=== PATIENT | male | born 1935 | race Caucasian/White ===

== ENCOUNTER 2020-02-27 18:03 | Inpatient (IN) ==
[2020-02-27] MEDS ORDERED: methylPREDNISolone 125 MG/2 ML VIAL IVP ONE (18:11)
[2020-02-27 18:31] LABS: Basophils # 0.1 K/mcL (0.0-0.2); Basophils % 0.7 %; Eosinophils # 0.6 K/mcL (0.0-0.6); Eosinophils % 7.3 %; Hematocrit 36.8 % (37.5-50.1); Hemoglobin 12.1 g/dL (12.9-16.9); Immature Granulocytes % 0.2 % (0-4); Lymphocytes # 1.2 K/mcL (0.6-4.6); Lymphocytes % 14.3 %; Mean Corpuscular HGB Conc 32.9 g/dL (31.6-35.5); Mean Corpuscular Hemoglobin 27.5 pg (28.0-33.3); Mean Corpuscular Volume 83.6 fL (83.0-100.0); Mean Platelet Volume 10.9 fL (9.4-12.4); Monocytes # 0.8 K/mcL (0.0-1.3); Monocytes % 10.1 %; Neutrophils # 5.6 K/mcL (1.6-8.9); Platelet Count 218 K/mcL (140-400); Red Cell Distribution Width 13.8 % (11.5-14.5); Segmented Neutrophils % 67.4 %; White Blood Count 8.2 K/mcL (4.3-11.1)
[2020-02-27 18:55] LABS: Alanine Aminotransferase 22 Units/L (7-52); Albumin 4.4 g/dL (3.5-5.7); Albumin/Globulin Ratio 1.6 (1.1-2.2); Alkaline Phosphatase 67 Units/L (34-104); Aspartate Amino Transferase 38 Units/L (13-39); BUN/Creatinine Ratio 32 (6-26); Bilirubin,Total 0.6 mg/dL (0.3-1.0); Blood Urea Nitrogen 12 mg/dL (8-23); Calcium 8.8 mg/dL (8.6-10.3); Carbon Dioxide 29 mEq/L (23-29); Chloride 78 mEq/L (98-107); Globulin 2.7 g/dL (2.4-3.5); Glucose 105 mg/dL (70-105); Osmolality,Calculated 240 (280-300); Potassium 4.4 mEq/L (3.5-5.1); Sodium 115 mEq/L (136-145); Total Protein 7.1 g/dL (6.4-8.9); Troponin I < 0.03 ng/mL (< 0.04); eGFR For African Americans > 60 (> 60); eGFR For Non-African Americans > 60 (> 60)
[2020-02-27] MEDS ORDERED: 0.9 % Sodium Chloride 500 ML IVC ONE (18:55)
[2020-02-27] MEDS ORDERED: Ipratropium/Albuterol Neb 3 ML IH ONE (19:43)
[2020-02-27] MEDS ORDERED: Ondansetron ODT 4 MG TAB.RAPDIS SL PRN (21:10)
[2020-02-27] MEDS ORDERED: Naloxone 0.4 MG/ML INJ IVP PRN (21:10)
[2020-02-27 22:39] LABS: Potassium,Urine 49.2 mEq/L
[2020-02-27 22:40] LABS: Bilirubin,Urine Negative (Negative); Blood,Urine Trace (Negative); Clarity,Urine Clear (Clear); Color,Urine Yellow (Yellow); Glucose,Urine (UA) Normal (Normal); Ketones,Urine 20 mg/dL (Negative); Leukocyte Esterase,Urine Negative (Negative); Mucus,Urine Few per lpf (None-Few); Nitrite,Urine Negative (Negative); Protein,Urine 50 mg/dL (Neg-Trace); Specific Gravity,Urine 1.019 (1.010-1.025); WBC,Urine 0-3 per hpf (0-3)
[2020-02-27 22:58] LABS: Magnesium 1.7 mg/dL (1.6-2.6); Phosphorous 2.7 mg/dL (2.7-4.5)
[2020-02-27] MEDS ORDERED: Isovue-370 500 ML BOTTLE IVP ONE (23:01)
[2020-02-27] MEDS ORDERED: D5% in Water 1,000 ML IVC PRN (23:03)
[2020-02-27] MEDS ORDERED: Dextrose Gel 15 GM/37.5 ML TUBE PO PRN ×2 (23:03)
[2020-02-27] MEDS ORDERED: *HR* Dextrose 50 % in Water (Vial) 50 ML VIAL IVP PRN (23:03)
[2020-02-27 23:05] LABS: BUN/Creatinine Ratio 32 (6-26); Blood Urea Nitrogen 11 mg/dL (8-23); Calcium 8.5 mg/dL (8.6-10.3); Carbon Dioxide 26 mEq/L (23-29); Chloride 79 mEq/L (98-107); Glucose 114 mg/dL (70-105); Osmolality,Calculated 242 (280-300); Potassium 4.2 mEq/L (3.5-5.1); Sodium 116 mEq/L (136-145); eGFR For African Americans > 60 (> 60); eGFR For Non-African Americans > 60 (> 60)
[2020-02-27] MEDS ORDERED: 0.9 % Sodium Chloride 1,000 ML IVC SCH (23:30)
[2020-02-27] MEDS: Budesonide/Formoterol 160/4.5 1 PUFF INH IH SCH (23:35)
[2020-02-27] MEDS: Azithromycin 250 MG TABLET PO SCH (23:56)
[2020-02-27] MEDS: Cholecalciferol (D-3) 1,000 UNIT (25MCG) TABLET PO SCH (23:56)
[2020-02-28] MEDS ORDERED: Levalbuterol Neb 1.25 MG/3 ML ONE (00:07)
[2020-02-28] MEDS ORDERED: Levalbuterol Neb 1.25 MG/3 ML IH STA (00:09)
[2020-02-28] MEDS ORDERED: *HR* Metoprolol 5 MG/5 ML VIAL IVP ONE (00:10)
[2020-02-28 00:38] LABS: VBG HCO3 30 mEq/L (21-27); VBG Ionized Calcium 1.08 mmol/L (1.15-1.35); VBG PCO2 70 mmHg (41-51); VBG PH 7.24 pH Units (7.32-7.42); VBG PO2 64 mmHg (25-50)
[2020-02-28 00:52] LABS: BUN/Creatinine Ratio 28 (6-26); Blood Urea Nitrogen 12 mg/dL (8-23); Calcium 8.7 mg/dL (8.6-10.3); Carbon Dioxide 26 mEq/L (23-29); Chloride 79 mEq/L (98-107); Glucose 121 mg/dL (70-105); Osmolality,Calculated 245 (280-300); Potassium 4.2 mEq/L (3.5-5.1); Sodium 117 mEq/L (136-145); eGFR For African Americans > 60 (> 60); eGFR For Non-African Americans > 60 (> 60)
[2020-02-28 01:05] LABS: Thyroid Stimulating Hormone 3.069 mcIU/mL (0.340-5.600)
[2020-02-28] MEDS: MethylPREDNISolone 40 MG/ML VIAL IVP SCH ×3 (02:15→17:30)
[2020-02-28] MEDS: Calcium Gluconate 1gm/50mL 1 GM/50 ML BAG IVPB SCH ×2 (02:16→03:04)
[2020-02-28] MEDS: Cholecalciferol (D-3) 1,000 UNIT (25MCG) TABLET PO SCH (03:25)
[2020-02-28] MEDS: Azithromycin 250 MG TABLET PO SCH (03:28)
[2020-02-28 03:36] LABS: VBG HCO3 27 mEq/L (21-27); VBG PCO2 50 mmHg (41-51); VBG PH 7.34 pH Units (7.32-7.42); VBG PO2 185 mmHg (25-50)
[2020-02-28 03:37] LABS: Troponin I < 0.03 ng/mL (< 0.04)
[2020-02-28] MEDS: Ipratropium/Albuterol Neb 3 ML IH PRN ×2 (04:14→10:52)
[2020-02-28 04:42] LABS: ABG Base Excess 2 mEq/L (-2 to 3); ABG HCO3 29 mEq/L (21-27); ABG Oxygen Saturation 100 % (95-98); ABG PCO2 52 mmHg (35-45); ABG PH 7.35 pH Units (7.32-7.45); ABG PO2 184 mmHg (85-104); ABG TCO2 31 mEq/L (20-26)
[2020-02-28] MEDS: *HR* Heparin 5,000 UNIT/ML VIAL SQ SCH ×2 (05:24→17:21)
[2020-02-28 05:58] LABS: BUN/Creatinine Ratio 33 (6-26); Blood Urea Nitrogen 13 mg/dL (8-23); Calcium 8.7 mg/dL (8.6-10.3); Carbon Dioxide 24 mEq/L (23-29); Chloride 80 mEq/L (98-107); Glucose 128 mg/dL (70-105); Osmolality,Calculated 244 (280-300); Potassium 4.3 mEq/L (3.5-5.1); Sodium 116 mEq/L (136-145); eGFR For African Americans > 60 (> 60); eGFR For Non-African Americans > 60 (> 60)
[2020-02-28 07:26] LABS: BUN/Creatinine Ratio 30 (6-26); Blood Urea Nitrogen 13 mg/dL (8-23); Calcium 8.7 mg/dL (8.6-10.3); Carbon Dioxide 28 mEq/L (23-29); Chloride 80 mEq/L (98-107); Chol/HDL Ratio 2.3 (0-4.9); Cholesterol 140 mg/dL (< 200); Glucose 128 mg/dL (70-105); HDL Cholesterol 60 mg/dL (40-59); LDL Cholesterol,Calculated 73 mg/dL (< 100); Osmolality,Calculated 246 (280-300); Potassium 4.4 mEq/L (3.5-5.1); Sodium 117 mEq/L (136-145); Triglycerides 34 mg/dL (< 150); eGFR For African Americans > 60 (> 60); eGFR For Non-African Americans > 60 (> 60)
[2020-02-28 08:16] LABS: Estimated Average Glucose 140 mg/dl; Hemoglobin A1C 6.5 %
[2020-02-28] MEDS: Metoprolol XL (24 HR) Succ 25 MG TAB.ER.24H PO SCH (09:37)
[2020-02-28] MEDS: amLODIPine 5 MG TABLET PO SCH (09:37)
[2020-02-28] MEDS: Insulin LISPRO 300 UNITS/3 ML VIAL SUBQ SCH ×3 (09:47→17:22)
[2020-02-28 10:09] LABS: Magnesium 2.1 mg/dL (1.6-2.6); Phosphorous 3.7 mg/dL (2.7-4.5)
[2020-02-28 10:17] LABS: BUN/Creatinine Ratio 30 (6-26); Blood Urea Nitrogen 14 mg/dL (8-23); Calcium 8.9 mg/dL (8.6-10.3); Carbon Dioxide 29 mEq/L (23-29); Chloride 79 mEq/L (98-107); Glucose 126 mg/dL (70-105); Osmolality,Calculated 248 (280-300); Potassium 4.4 mEq/L (3.5-5.1); Sodium 118 mEq/L (136-145); eGFR For African Americans > 60 (> 60); eGFR For Non-African Americans > 60 (> 60)
[2020-02-28] MEDS: Budesonide/Formoterol 160/4.5 1 PUFF INH IH SCH ×2 (10:52→21:01)
[2020-02-28] MEDS: Ipratropium/Albuterol Neb 3 ML IH SCH ×3 (11:16→21:01)
[2020-02-28 12:16] LABS: Basophils % 0.2 %; Hematocrit 35.3 % (37.5-50.1); Immature Granulocytes % 0.4 % (0-4)
[2020-02-28 12:17] LABS: Eosinophils % 0.6 %; Hemoglobin 11.6 g/dL (12.9-16.9); Immature Platelets 14.5 % (1.1-6.1); Lymphocytes # 0.5 K/mcL (0.6-4.6); Lymphocytes % 9.3 %; Mean Corpuscular HGB Conc 32.9 g/dL (31.6-35.5); Mean Corpuscular Hemoglobin 27.5 pg (28.0-33.3); Mean Corpuscular Volume 83.6 fL (83.0-100.0); Mean Platelet Volume 10.2 fL (9.4-12.4); Monocytes # 0.1 K/mcL (0.0-1.3); Monocytes % 1.4 %; Platelet Count 128 K/mcL (140-400); Red Blood Count 4.22 M/mcL (4.19-5.50); Red Cell Distribution Width 13.9 % (11.5-14.5); Segmented Neutrophils % 88.1 %; White Blood Count 4.9 K/mcL (4.3-11.1)
[2020-02-28 12:19] LABS: Neutrophils # 4.3 K/mcL (1.6-8.9)
[2020-02-28 14:01] LABS: BUN/Creatinine Ratio 30 (6-26); Blood Urea Nitrogen 14 mg/dL (8-23); Calcium 8.9 mg/dL (8.6-10.3); Carbon Dioxide 27 mEq/L (23-29); Chloride 79 mEq/L (98-107); Glucose 129 mg/dL (70-105); Osmolality,Calculated 246 (280-300); Potassium 4.3 mEq/L (3.5-5.1); Sodium 117 mEq/L (136-145); eGFR For African Americans > 60 (> 60); eGFR For Non-African Americans > 60 (> 60)
[2020-02-28 14:19] LABS: BUN/Creatinine Ratio 31 (6-26); Blood Urea Nitrogen 14 mg/dL (8-23); Calcium 8.7 mg/dL (8.6-10.3); Carbon Dioxide 29 mEq/L (23-29); Chloride 80 mEq/L (98-107); Glucose 129 mg/dL (70-105); Osmolality,Calculated 248 (280-300); Potassium 4.3 mEq/L (3.5-5.1); Sodium 118 mEq/L (136-145); eGFR For African Americans > 60 (> 60); eGFR For Non-African Americans > 60 (> 60)
[2020-02-28 16:23] LABS: BUN/Creatinine Ratio 33 (6-26); Blood Urea Nitrogen 15 mg/dL (8-23); Calcium 8.6 mg/dL (8.6-10.3); Carbon Dioxide 29 mEq/L (23-29); Chloride 80 mEq/L (98-107); Glucose 211 mg/dL (70-105); Osmolality,Calculated 249 (280-300); Potassium 4.1 mEq/L (3.5-5.1); Sodium 116 mEq/L (136-145); eGFR For African Americans > 60 (> 60); eGFR For Non-African Americans > 60 (> 60)
[2020-02-28 20:50] LABS: BUN/Creatinine Ratio 31 (6-26); Blood Urea Nitrogen 18 mg/dL (8-23); Calcium 8.5 mg/dL (8.6-10.3); Carbon Dioxide 30 mEq/L (23-29); Chloride 83 mEq/L (98-107); Glucose 179 mg/dL (70-105); Osmolality,Calculated 252 (280-300); Potassium 4.4 mEq/L (3.5-5.1); Sodium 118 mEq/L (136-145); eGFR For African Americans > 60 (> 60); eGFR For Non-African Americans > 60 (> 60)
[2020-02-29 00:40] LABS: Basophils % 0.1 %; Eosinophils # 0.1 K/mcL (0.0-0.6); Eosinophils % 0.8 %; Hematocrit 29.6 % (37.5-50.1); Hemoglobin 9.7 g/dL (12.9-16.9); Immature Granulocytes % 0.6 % (0-4); Lymphocytes # 0.6 K/mcL (0.6-4.6); Lymphocytes % 7.1 %; Mean Corpuscular HGB Conc 32.8 g/dL (31.6-35.5); Mean Corpuscular Hemoglobin 27.4 pg (28.0-33.3); Mean Corpuscular Volume 83.6 fL (83.0-100.0); Mean Platelet Volume 10.5 fL (9.4-12.4); Monocytes # 0.9 K/mcL (0.0-1.3); Monocytes % 10.6 %; Neutrophils # 7.1 K/mcL (1.6-8.9); Platelet Count 251 K/mcL (140-400); Red Blood Count 3.54 M/mcL (4.19-5.50); Red Cell Distribution Width 13.9 % (11.5-14.5); Segmented Neutrophils % 80.8 %; White Blood Count 8.8 K/mcL (4.3-11.1)
[2020-02-29 01:10] LABS: % Iron Saturation 10 % (20-55); Albumin 3.6 g/dL (3.5-5.7); BUN/Creatinine Ratio 38 (6-26); Blood Urea Nitrogen 22 mg/dL (8-23); Calcium 8.5 mg/dL (8.6-10.3); Carbon Dioxide 30 mEq/L (23-29); Chloride 83 mEq/L (98-107); Glucose 117 mg/dL (70-105); Iron 31 mcg/dL (65-175); Osmolality,Calculated 250 (280-300); Phosphorous 2.9 mg/dL (2.7-4.5); Potassium 4.5 mEq/L (3.5-5.1); Sodium 118 mEq/L (136-145); Transferrin 225 mg/dL (203-362); eGFR For African Americans > 60 (> 60); eGFR For Non-African Americans > 60 (> 60)
[2020-02-29 01:24] LABS: Ferritin 52 ng/mL (20-250)
[2020-02-29 01:31] LABS: Folate 12.9 ng/mL (3.0-16.0)
[2020-02-29] MEDS: MethylPREDNISolone 40 MG/ML VIAL IVP SCH ×3 (02:41→17:35)
[2020-02-29] MEDS: Ipratropium/Albuterol Neb 3 ML IH SCH ×4 (04:43→21:40)
[2020-02-29] MEDS: *HR* Heparin 5,000 UNIT/ML VIAL SQ SCH ×2 (06:21→17:35)
[2020-02-29 07:48] LABS: BUN/Creatinine Ratio 41 (6-26); Blood Urea Nitrogen 21 mg/dL (8-23); Calcium 8.6 mg/dL (8.6-10.3); Carbon Dioxide 32 mEq/L (23-29); Chloride 83 mEq/L (98-107); Glucose 135 mg/dL (70-105); Osmolality,Calculated 257 (280-300); Potassium 4.4 mEq/L (3.5-5.1); Sodium 121 mEq/L (136-145); eGFR For African Americans > 60 (> 60); eGFR For Non-African Americans > 60 (> 60)
[2020-02-29] MEDS ORDERED: Iron Sucrose Complex 400 MG in 0.9 % Sodium Chloride 250 ML IVPB ONE (08:00)
[2020-02-29] MEDS: Budesonide/Formoterol 160/4.5 1 PUFF INH IH SCH ×2 (09:38→21:40)
[2020-02-29 09:59] LABS: ABG Base Excess 6 mEq/L (-2 to 3); ABG HCO3 33 mEq/L (21-27); ABG Oxygen Saturation 94 % (95-98); ABG PCO2 54 mmHg (35-45); ABG PH 7.39 pH Units (7.32-7.45); ABG PO2 73 mmHg (85-104); ABG TCO2 34 mEq/L (20-26); Blood Gas Modality BiLevel
[2020-02-29] MEDS: Metoprolol XL (24 HR) Succ 25 MG TAB.ER.24H PO SCH (10:33)
[2020-02-29] MEDS: amLODIPine 5 MG TABLET PO SCH (10:33)
[2020-02-29] MEDS: Calcium Gluconate 1gm/50mL 1 GM/50 ML BAG IVPB SCH ×2 (10:33→11:43)
[2020-02-29] MEDS: Insulin LISPRO 300 UNITS/3 ML VIAL SUBQ SCH ×3 (10:33→17:35)
[2020-02-29 12:17] LABS: Hematocrit 30.9 % (37.5-50.1); Hemoglobin 10.2 g/dL (12.9-16.9)
[2020-02-29 12:32] LABS: BUN/Creatinine Ratio 28 (6-26); Blood Urea Nitrogen 17 mg/dL (8-23); Calcium 8.7 mg/dL (8.6-10.3); Carbon Dioxide 30 mEq/L (23-29); Chloride 85 mEq/L (98-107); Glucose 178 mg/dL (70-105); Osmolality,Calculated 258 (280-300); Potassium 4.3 mEq/L (3.5-5.1); Sodium 121 mEq/L (136-145); eGFR For African Americans > 60 (> 60); eGFR For Non-African Americans > 60 (> 60)
[2020-02-29] MEDS ORDERED: Ipratropium/Albuterol Neb 3 ML IH PRN (14:15)
[2020-02-29 16:33] LABS: BUN/Creatinine Ratio 27 (6-26); Blood Urea Nitrogen 17 mg/dL (8-23); Calcium 8.8 mg/dL (8.6-10.3); Carbon Dioxide 30 mEq/L (23-29); Chloride 86 mEq/L (98-107); Glucose 178 mg/dL (70-105); Osmolality,Calculated 262 (280-300); Potassium 4.4 mEq/L (3.5-5.1); Sodium 123 mEq/L (136-145); eGFR For African Americans > 60 (> 60); eGFR For Non-African Americans > 60 (> 60)
[2020-02-29 19:09] LABS: Adenovirus Not Detected (Not Detect); Bordetella Pertussis Not Detected (Not Detect); Chlamydophila pneumoniae Not Detected (Not Detect); Coronavirus 229E Not Detected (Not Detect); Coronavirus HKU1 Not Detected (Not Detect); Coronavirus NL63 Not Detected (Not Detect); Coronavirus OC43 Not Detected (Not Detect); Human Metapneumovirus Not Detected (Not Detect); Human Rhinovirus/Enterovirus Not Detected (Not Detect); Influenza A Subtype 2009 H1 Not Detected (Not Detect); Influenza B Not Detected (Not Detect); Mycoplasma pneumoniae Not Detected (Not Detect); Parainfluenza Virus 1 Not Detected (Not Detect); Parainfluenza Virus 2 Not Detected (Not Detect); Parainfluenza Virus 3 Not Detected (Not Detect); Parainfluenza Virus 4 Not Detected (Not Detect); Respiratory Syncytial Virus Not Detected (Not Detect); SARS-CoV-2 Not Detected (Not Detect)
[2020-02-29 22:42] LABS: BUN/Creatinine Ratio 34 (6-26); Blood Urea Nitrogen 20 mg/dL (8-23); Calcium 8.5 mg/dL (8.6-10.3); Carbon Dioxide 33 mEq/L (23-29); Chloride 87 mEq/L (98-107); Glucose 137 mg/dL (70-105); Osmolality,Calculated 265 (280-300); Potassium 4.5 mEq/L (3.5-5.1); Sodium 125 mEq/L (136-145); eGFR For African Americans > 60 (> 60); eGFR For Non-African Americans > 60 (> 60)
[2020-02-29] MEDS: Cholecalciferol (D-3) 1,000 UNIT (25MCG) TABLET PO SCH (23:12)
[2020-02-29 23:38] LABS: ABG Base Excess 7 mEq/L (-2 to 3); ABG HCO3 35 mEq/L (21-27); ABG Oxygen Saturation 93 % (95-98); ABG PCO2 62 mmHg (35-45); ABG PH 7.35 pH Units (7.32-7.45); ABG PO2 72 mmHg (85-104); ABG TCO2 37 mEq/L (20-26)
[2020-03-01] MEDS: MethylPREDNISolone 40 MG/ML VIAL IVP SCH ×3 (03:05→17:32)
[2020-03-01 03:39] LABS: Alanine Aminotransferase 24 Units/L (7-52); Albumin 3.8 g/dL (3.5-5.7); Albumin/Globulin Ratio 1.6 (1.1-2.2); Alkaline Phosphatase 57 Units/L (34-104); Aspartate Amino Transferase 36 Units/L (13-39); BUN/Creatinine Ratio 39 (6-26); Bilirubin,Total 0.3 mg/dL (0.3-1.0); Blood Urea Nitrogen 20 mg/dL (8-23); Calcium 8.5 mg/dL (8.6-10.3); Carbon Dioxide 31 mEq/L (23-29); Chloride 88 mEq/L (98-107); Globulin 2.4 g/dL (2.4-3.5); Glucose 130 mg/dL (70-105); Magnesium 2.1 mg/dL (1.6-2.6); Osmolality,Calculated 264 (280-300); Phosphorous 2.8 mg/dL (2.7-4.5); Potassium 4.7 mEq/L (3.5-5.1); Sodium 125 mEq/L (136-145); Total Protein 6.2 g/dL (6.4-8.9); eGFR For African Americans > 60 (> 60); eGFR For Non-African Americans > 60 (> 60)
[2020-03-01] MEDS: Ipratropium/Albuterol Neb 3 ML IH SCH ×5 (03:59→21:42)
[2020-03-01 05:13] LABS: Basophils % 0.1 %; Eosinophils % 0.1 %; Hemoglobin 11.2 g/dL (12.9-16.9); Immature Granulocytes % 0.6 % (0-4); Lymphocytes # 0.5 K/mcL (0.6-4.6); Lymphocytes % 3.8 %; Mean Corpuscular Hemoglobin 27.3 pg (28.0-33.3); Mean Corpuscular Volume 85.4 fL (83.0-100.0); Mean Platelet Volume 10.8 fL (9.4-12.4); Monocytes # 0.6 K/mcL (0.0-1.3); Monocytes % 5.3 %; Neutrophils # 10.9 K/mcL (1.6-8.9); Platelet Count 260 K/mcL (140-400); Red Cell Distribution Width 14.4 % (11.5-14.5); Segmented Neutrophils % 90.1 %; White Blood Count 12.1 K/mcL (4.3-11.1)
[2020-03-01] MEDS: *HR* Heparin 5,000 UNIT/ML VIAL SQ SCH ×2 (05:49→17:32)
[2020-03-01] MEDS: Insulin LISPRO 300 UNITS/3 ML VIAL SUBQ SCH ×3 (08:41→16:54)
[2020-03-01] MEDS: amLODIPine 5 MG TABLET PO SCH (08:41)
[2020-03-01] MEDS: Metoprolol XL (24 HR) Succ 25 MG TAB.ER.24H PO SCH (08:41)
[2020-03-01] MEDS: Budesonide/Formoterol 160/4.5 1 PUFF INH IH SCH ×2 (14:45→21:42)
[2020-03-02 02:27] LABS: Basophils % 0.1 %; Eosinophils # 0.1 K/mcL (0.0-0.6); Eosinophils % 0.7 %; Hematocrit 33.9 % (37.5-50.1); Hemoglobin 10.8 g/dL (12.9-16.9); Immature Granulocytes % 0.9 % (0-4); Lymphocytes # 0.5 K/mcL (0.6-4.6); Lymphocytes % 3.6 %; Mean Corpuscular HGB Conc 31.9 g/dL (31.6-35.5); Mean Corpuscular Volume 84.8 fL (83.0-100.0); Monocytes # 0.8 K/mcL (0.0-1.3); Monocytes % 5.8 %; Neutrophils # 11.9 K/mcL (1.6-8.9); Platelet Count 307 K/mcL (140-400); Red Cell Distribution Width 14.3 % (11.5-14.5); Segmented Neutrophils % 88.9 %; White Blood Count 13.4 K/mcL (4.3-11.1)
[2020-03-02 02:45] LABS: Alanine Aminotransferase 22 Units/L (7-52); Albumin 3.7 g/dL (3.5-5.7); Albumin/Globulin Ratio 1.7 (1.1-2.2); Alkaline Phosphatase 52 Units/L (34-104); Aspartate Amino Transferase 25 Units/L (13-39); BUN/Creatinine Ratio 51 (6-26); Bilirubin,Total 0.3 mg/dL (0.3-1.0); Blood Urea Nitrogen 22 mg/dL (8-23); Calcium 8.8 mg/dL (8.6-10.3); Carbon Dioxide 32 mEq/L (23-29); Chloride 89 mEq/L (98-107); Globulin 2.2 g/dL (2.4-3.5); Glucose 137 mg/dL (70-105); Magnesium 2.1 mg/dL (1.6-2.6); Osmolality,Calculated 267 (280-300); Phosphorous 2.7 mg/dL (2.7-4.5); Potassium 4.2 mEq/L (3.5-5.1); Sodium 126 mEq/L (136-145); Total Protein 5.9 g/dL (6.4-8.9); eGFR For African Americans > 60 (> 60); eGFR For Non-African Americans > 60 (> 60)
[2020-03-02] MEDS: MethylPREDNISolone 40 MG/ML VIAL IVP SCH ×3 (02:59→16:15)
[2020-03-02] MEDS: Ipratropium/Albuterol Neb 3 ML IH SCH ×4 (03:57→21:40)
[2020-03-02] MEDS: *HR* Heparin 5,000 UNIT/ML VIAL SQ SCH ×2 (06:26→16:15)
[2020-03-02] MEDS: Insulin LISPRO 300 UNITS/3 ML VIAL SUBQ SCH ×3 (07:55→17:00)
[2020-03-02] MEDS: Metoprolol XL (24 HR) Succ 25 MG TAB.ER.24H PO SCH (09:08)
[2020-03-02] MEDS: amLODIPine 5 MG TABLET PO SCH (09:08)
[2020-03-02] MEDS: Budesonide/Formoterol 160/4.5 1 PUFF INH IH SCH ×2 (10:25→21:39)
[2020-03-02] MEDS: Cholecalciferol (D-3) 1,000 UNIT (25MCG) TABLET PO SCH (22:50)
[2020-03-02 23:15] LABS: Alpha 2 Globulin (PEP) 0.66 g/dL (0.48-1.05); Beta Globulin (PEP) 0.64 g/dL (0.48-1.10)
[2020-03-03] MEDS: Ipratropium/Albuterol Neb 3 ML IH SCH ×4 (03:54→22:44)
[2020-03-03] MEDS: MethylPREDNISolone 40 MG/ML VIAL IVP SCH ×2 (05:32→17:05)
[2020-03-03] MEDS: *HR* Heparin 5,000 UNIT/ML VIAL SQ SCH ×2 (05:32→17:05)
[2020-03-03 06:45] LABS: IFE Reflexed NOT DONE
[2020-03-03 07:26] LABS: Basophils % 0.2 %; Eosinophils # 0.1 K/mcL (0.0-0.6); Eosinophils % 0.3 %; Hematocrit 35.8 % (37.5-50.1); Hemoglobin 11.2 g/dL (12.9-16.9); Lymphocytes # 0.5 K/mcL (0.6-4.6); Lymphocytes % 3.1 %; Mean Corpuscular HGB Conc 31.3 g/dL (31.6-35.5); Mean Corpuscular Volume 86.3 fL (83.0-100.0); Monocytes # 1.3 K/mcL (0.0-1.3); Monocytes % 7.7 %; Neutrophils # 14.3 K/mcL (1.6-8.9); Platelet Count 336 K/mcL (140-400); Red Blood Count 4.15 M/mcL (4.19-5.50); Red Cell Distribution Width 14.6 % (11.5-14.5); Segmented Neutrophils % 87.7 %; White Blood Count 16.3 K/mcL (4.3-11.1)
[2020-03-03 07:47] LABS: Alanine Aminotransferase 21 Units/L (7-52); Albumin 3.7 g/dL (3.5-5.7); Albumin/Globulin Ratio 1.5 (1.1-2.2); Alkaline Phosphatase 57 Units/L (34-104); Aspartate Amino Transferase 19 Units/L (13-39); BUN/Creatinine Ratio 54 (6-26); Bilirubin,Total 0.3 mg/dL (0.3-1.0); Blood Urea Nitrogen 25 mg/dL (8-23); Carbon Dioxide 35 mEq/L (23-29); Chloride 88 mEq/L (98-107); Globulin 2.4 g/dL (2.4-3.5); Glucose 146 mg/dL (70-105); Magnesium 2.1 mg/dL (1.6-2.6); Osmolality,Calculated 273 (280-300); Phosphorous 3.3 mg/dL (2.7-4.5); Sodium 128 mEq/L (136-145); Total Protein 6.1 g/dL (6.4-8.9); eGFR For African Americans > 60 (> 60); eGFR For Non-African Americans > 60 (> 60)
[2020-03-03] MEDS: Insulin LISPRO 300 UNITS/3 ML VIAL SUBQ SCH ×3 (09:05→16:57)
[2020-03-03] MEDS: amLODIPine 5 MG TABLET PO SCH (09:22)
[2020-03-03] MEDS: Metoprolol XL (24 HR) Succ 25 MG TAB.ER.24H PO SCH (09:22)
[2020-03-03] MEDS: Budesonide/Formoterol 160/4.5 1 PUFF INH IH SCH ×2 (11:30→22:44)
[2020-03-04 01:56] LABS: Basophils # 0.1 K/mcL (0.0-0.2); Basophils % 0.3 %; Eosinophils # 0.1 K/mcL (0.0-0.6); Eosinophils % 0.4 %; Hematocrit 34.5 % (37.5-50.1); Hemoglobin 10.7 g/dL (12.9-16.9); Lymphocytes # 0.6 K/mcL (0.6-4.6); Lymphocytes % 3.5 %; Mean Corpuscular Hemoglobin 27.1 pg (28.0-33.3); Mean Corpuscular Volume 87.3 fL (83.0-100.0); Mean Platelet Volume 10.1 fL (9.4-12.4); Monocytes # 0.9 K/mcL (0.0-1.3); Monocytes % 4.6 %; Neutrophils # 16.4 K/mcL (1.6-8.9); Nucleated Red Blood Cells 0.1 /100 WBC (0); Platelet Count 325 K/mcL (140-400); Red Blood Count 3.95 M/mcL (4.19-5.50); Red Cell Distribution Width 14.5 % (11.5-14.5); Segmented Neutrophils % 89.2 %; White Blood Count 18.4 K/mcL (4.3-11.1)
[2020-03-04 02:10] LABS: BUN/Creatinine Ratio 55 (6-26); Blood Urea Nitrogen 27 mg/dL (8-23); Calcium 8.6 mg/dL (8.6-10.3); Carbon Dioxide 37 mEq/L (23-29); Chloride 88 mEq/L (98-107); Glucose 168 mg/dL (70-105); Osmolality,Calculated 277 (280-300); Potassium 4.7 mEq/L (3.5-5.1); Sodium 129 mEq/L (136-145); eGFR For African Americans > 60 (> 60); eGFR For Non-African Americans > 60 (> 60)
[2020-03-04] MEDS: Ipratropium/Albuterol Neb 3 ML IH SCH ×4 (03:46→22:14)
[2020-03-04] MEDS: *HR* Heparin 5,000 UNIT/ML VIAL SQ SCH ×2 (05:46→17:07)
[2020-03-04] MEDS: MethylPREDNISolone 40 MG/ML VIAL IVP SCH ×2 (05:46→17:07)
[2020-03-04] MEDS: Insulin LISPRO 300 UNITS/3 ML VIAL SUBQ SCH ×3 (08:13→16:14)
[2020-03-04] MEDS: amLODIPine 5 MG TABLET PO SCH (08:13)
[2020-03-04] MEDS: Metoprolol XL (24 HR) Succ 25 MG TAB.ER.24H PO SCH (08:13)
[2020-03-04] MEDS: Budesonide/Formoterol 160/4.5 1 PUFF INH IH SCH ×2 (10:25→22:14)
[2020-03-04] MEDS: cefTRIAXone 2,000 MG in Water for inj. (sterile) 20 ML IVP SCH (12:20)
[2020-03-04] MEDS: Cholecalciferol (D-3) 1,000 UNIT (25MCG) TABLET PO SCH (21:43)
[2020-03-05 03:27] LABS: Basophils # 0.1 K/mcL (0.0-0.2); Basophils % 0.6 %; Eosinophils # 0.1 K/mcL (0.0-0.6); Eosinophils % 0.5 %; Hematocrit 35.6 % (37.5-50.1); Hemoglobin 11.2 g/dL (12.9-16.9); Immature Granulocytes % 3.9 % (0-4); Lymphocytes # 0.6 K/mcL (0.6-4.6); Lymphocytes % 2.7 %; Mean Corpuscular HGB Conc 31.5 g/dL (31.6-35.5); Mean Corpuscular Hemoglobin 28.1 pg (28.0-33.3); Mean Corpuscular Volume 89.4 fL (83.0-100.0); Mean Platelet Volume 10.2 fL (9.4-12.4); Monocytes # 0.7 K/mcL (0.0-1.3); Monocytes % 3.4 %; Neutrophils # 19.2 K/mcL (1.6-8.9); Nucleated Red Blood Cells 0.1 /100 WBC (0); Platelet Count 320 K/mcL (140-400); Red Blood Count 3.98 M/mcL (4.19-5.50); Red Cell Distribution Width 14.6 % (11.5-14.5); Segmented Neutrophils % 88.9 %; White Blood Count 21.5 K/mcL (4.3-11.1)
[2020-03-05] MEDS: Ipratropium/Albuterol Neb 3 ML IH SCH ×4 (03:38→22:59)
[2020-03-05 03:49] LABS: BUN/Creatinine Ratio 66 (6-26); Blood Urea Nitrogen 39 mg/dL (8-23); Calcium 8.6 mg/dL (8.6-10.3); Carbon Dioxide 34 mEq/L (23-29); Chloride 92 mEq/L (98-107); Glucose 156 mg/dL (70-105); Osmolality,Calculated 285 (280-300); Potassium 4.7 mEq/L (3.5-5.1); Sodium 131 mEq/L (136-145); eGFR For African Americans > 60 (> 60); eGFR For Non-African Americans > 60 (> 60)
[2020-03-05] MEDS: MethylPREDNISolone 40 MG/ML VIAL IVP SCH ×2 (05:51→16:51)
[2020-03-05] MEDS: *HR* Heparin 5,000 UNIT/ML VIAL SQ SCH ×2 (05:54→16:51)
[2020-03-05] MEDS: amLODIPine 5 MG TABLET PO SCH (07:48)
[2020-03-05] MEDS: Metoprolol XL (24 HR) Succ 25 MG TAB.ER.24H PO SCH (07:48)
[2020-03-05] MEDS: Insulin LISPRO 300 UNITS/3 ML VIAL SUBQ SCH ×3 (07:48→16:24)
[2020-03-05] MEDS: Budesonide/Formoterol 160/4.5 1 PUFF INH IH SCH ×2 (10:45→22:59)
[2020-03-05] MEDS: cefTRIAXone 2,000 MG in Water for inj. (sterile) 20 ML IVP SCH (12:28)
[2020-03-06 02:08] LABS: Hematocrit 38.7 % (37.5-50.1); Mean Corpuscular Volume 90.2 fL (83.0-100.0); Nucleated Red Blood Cells 0.1 /100 WBC (0); Platelet Count 291 K/mcL (140-400); Red Blood Count 4.29 M/mcL (4.19-5.50); Red Cell Distribution Width 14.9 % (11.5-14.5); White Blood Count 22.1 K/mcL (4.3-11.1)
[2020-03-06 02:25] LABS: BUN/Creatinine Ratio 74 (6-26); Blood Urea Nitrogen 39 mg/dL (8-23); Calcium 8.8 mg/dL (8.6-10.3); Carbon Dioxide 38 mEq/L (23-29); Chloride 93 mEq/L (98-107); Glucose 158 mg/dL (70-105); Osmolality,Calculated 289 (280-300); Potassium 4.6 mEq/L (3.5-5.1); Sodium 133 mEq/L (136-145); eGFR For African Americans > 60 (> 60); eGFR For Non-African Americans > 60 (> 60)
[2020-03-06 02:35] LABS: Lymphocytes # 1.3 K/mcL (0.6-4.6); Monocytes # 0.9 K/mcL (0.0-1.3); Neutrophils # 19.9 K/mcL (1.6-8.9)
[2020-03-06 02:36] LABS: Platelet Estimate Normal (Normal)
[2020-03-06] MEDS: Ipratropium/Albuterol Neb 3 ML IH SCH ×4 (04:00→21:29)
[2020-03-06] MEDS: *HR* Heparin 5,000 UNIT/ML VIAL SQ SCH (05:32)
[2020-03-06] MEDS: MethylPREDNISolone 40 MG/ML VIAL IVP SCH (05:33)
[2020-03-06] MEDS: predniSONE 20 MG TABLET PO SCH (09:51)
[2020-03-06] MEDS: Metoprolol XL (24 HR) Succ 25 MG TAB.ER.24H PO SCH (09:51)
[2020-03-06] MEDS: amLODIPine 5 MG TABLET PO SCH (09:51)
[2020-03-06] MEDS: Insulin LISPRO 300 UNITS/3 ML VIAL SUBQ SCH ×2 (09:51→13:06)
[2020-03-06] MEDS: Budesonide/Formoterol 160/4.5 1 PUFF INH IH SCH ×2 (11:04→21:29)
[2020-03-06] MEDS: cefTRIAXone 2,000 MG in Water for inj. (sterile) 20 ML IVP SCH (13:06)
[2020-03-06] MEDS: Cholecalciferol (D-3) 1,000 UNIT (25MCG) TABLET PO SCH (23:15)
[2020-03-07] MEDS: Ipratropium/Albuterol Neb 3 ML IH SCH ×4 (03:20→22:48)
[2020-03-07 05:06] LABS: Hematocrit 37.1 % (37.5-50.1); Hemoglobin 11.5 g/dL (12.9-16.9); Mean Corpuscular Hemoglobin 27.3 pg (28.0-33.3); Mean Corpuscular Volume 87.9 fL (83.0-100.0); Mean Platelet Volume 10.5 fL (9.4-12.4); Platelet Count 327 K/mcL (140-400); Red Blood Count 4.22 M/mcL (4.19-5.50); Red Cell Distribution Width 15.4 % (11.5-14.5); White Blood Count 23.2 K/mcL (4.3-11.1)
[2020-03-07 05:24] LABS: BUN/Creatinine Ratio 67 (6-26); Blood Urea Nitrogen 32 mg/dL (8-23); Calcium 8.7 mg/dL (8.6-10.3); Carbon Dioxide 35 mEq/L (23-29); Chloride 94 mEq/L (98-107); Glucose 120 mg/dL (70-105); Osmolality,Calculated 284 (280-300); Potassium 4.4 mEq/L (3.5-5.1); Sodium 133 mEq/L (136-145); eGFR For African Americans > 60 (> 60); eGFR For Non-African Americans > 60 (> 60)
[2020-03-07 05:31] LABS: Lymphocytes # 1.9 K/mcL (0.6-4.6); Monocytes # 0.9 K/mcL (0.0-1.3); Platelet Estimate Normal (Normal); Toxic Granulation Present (Not Present)
[2020-03-07] MEDS: Insulin LISPRO 300 UNITS/3 ML VIAL SUBQ SCH ×4 (05:54→16:55)
[2020-03-07] MEDS: *HR* Heparin 5,000 UNIT/ML VIAL SQ SCH ×3 (05:55→16:54)
[2020-03-07] MEDS: Budesonide/Formoterol 160/4.5 1 PUFF INH IH SCH ×2 (10:48→22:47)
[2020-03-07] MEDS: predniSONE 20 MG TABLET PO SCH (10:59)
[2020-03-07] MEDS: Metoprolol XL (24 HR) Succ 25 MG TAB.ER.24H PO SCH (10:59)
[2020-03-07] MEDS: amLODIPine 5 MG TABLET PO SCH (10:59)
[2020-03-07] MEDS: Piperacillin/Tazobactam 3.375 GM in 0.9 % Sodium Chloride Mini Bag 100 ML IVPB SCH ×2 (11:07→16:54)
[2020-03-08] MEDS: Piperacillin/Tazobactam 3.375 GM in 0.9 % Sodium Chloride Mini Bag 100 ML IVPB SCH ×3 (02:07→18:58)
[2020-03-08 03:04] LABS: Hematocrit 37.1 % (37.5-50.1); Hemoglobin 11.5 g/dL (12.9-16.9); Mean Corpuscular Hemoglobin 27.9 pg (28.0-33.3); Mean Platelet Volume 9.1 fL (9.4-12.4); Platelet Count 348 K/mcL (140-400); Red Blood Count 4.12 M/mcL (4.19-5.50); Red Cell Distribution Width 15.2 % (11.5-14.5); White Blood Count 17.7 K/mcL (4.3-11.1)
[2020-03-08 03:24] LABS: BUN/Creatinine Ratio 61 (6-26); Blood Urea Nitrogen 33 mg/dL (8-23); Calcium 8.4 mg/dL (8.6-10.3); Carbon Dioxide 36 mEq/L (23-29); Chloride 94 mEq/L (98-107); Glucose 128 mg/dL (70-105); Osmolality,Calculated 285 (280-300); Potassium 4.5 mEq/L (3.5-5.1); Sodium 133 mEq/L (136-145); eGFR For African Americans > 60 (> 60); eGFR For Non-African Americans > 60 (> 60)
[2020-03-08 03:34] LABS: Lymphocytes # 2.8 K/mcL (0.6-4.6); Monocytes # 0.4 K/mcL (0.0-1.3); Neutrophils # 14.2 K/mcL (1.6-8.9); Platelet Estimate Normal (Normal); Toxic Granulation Present (Not Present)
[2020-03-08] MEDS: Ipratropium/Albuterol Neb 3 ML IH SCH ×4 (04:13→22:00)
[2020-03-08] MEDS: *HR* Heparin 5,000 UNIT/ML VIAL SQ SCH ×2 (06:20→18:58)
[2020-03-08] MEDS: predniSONE 20 MG TABLET PO SCH (10:09)
[2020-03-08] MEDS: Metoprolol XL (24 HR) Succ 25 MG TAB.ER.24H PO SCH (10:09)
[2020-03-08] MEDS: amLODIPine 5 MG TABLET PO SCH (10:09)
[2020-03-08] MEDS: Insulin LISPRO 300 UNITS/3 ML VIAL SUBQ SCH ×3 (10:09→16:30)
[2020-03-08] MEDS: Budesonide/Formoterol 160/4.5 1 PUFF INH IH SCH ×2 (10:41→22:00)
[2020-03-08] MEDS ORDERED: *HR* FentaNYL (PF) 100 MCG/2 ML VIAL ONE (11:21)
[2020-03-08] MEDS ORDERED: Lidocaine -MPF 2% 2 ML VIAL ONE (11:23)
[2020-03-08] MEDS ORDERED: Dexamethasone 4 MG/ML VIAL ONE (11:23)
[2020-03-08] MEDS ORDERED: Ondansetron 4 MG/2 ML VIAL ONE (11:23)
[2020-03-08] MEDS ORDERED: *HR* Succinylcholine 200 MG/10 ML VIAL IVP ONE (11:23)
[2020-03-08] MEDS ORDERED: Lidocaine -MPF 4% 5 ML AMPUL ONE (11:23)
[2020-03-08] MEDS ORDERED: *HR* PHENYLEPHRINE 1,000 MCG/10 ML SYRINGE IVP ONE (11:35)
[2020-03-08 17:25] LABS: Appearance of Body Fluid Cloudy (Clear)
[2020-03-08 17:29] LABS: Volume of Body Fluid 25 mL
[2020-03-08] MEDS: Cholecalciferol (D-3) 1,000 UNIT (25MCG) TABLET PO SCH (22:53)
[2020-03-09] MEDS: Piperacillin/Tazobactam 3.375 GM in 0.9 % Sodium Chloride Mini Bag 100 ML IVPB SCH ×3 (02:30→17:38)
[2020-03-09] MEDS: Ipratropium/Albuterol Neb 3 ML IH SCH ×4 (03:27→22:16)
[2020-03-09 04:33] LABS: Hematocrit 34.7 % (37.5-50.1); Hemoglobin 10.9 g/dL (12.9-16.9); Mean Corpuscular HGB Conc 31.4 g/dL (31.6-35.5); Mean Corpuscular Hemoglobin 27.6 pg (28.0-33.3); Mean Corpuscular Volume 87.8 fL (83.0-100.0); Mean Platelet Volume 10.7 fL (9.4-12.4); Platelet Count 222 K/mcL (140-400); Red Blood Count 3.95 M/mcL (4.19-5.50); Red Cell Distribution Width 15.2 % (11.5-14.5); White Blood Count 14.9 K/mcL (4.3-11.1)
[2020-03-09 04:42] LABS: BUN/Creatinine Ratio 50 (6-26); Blood Urea Nitrogen 20 mg/dL (8-23); Calcium 8.2 mg/dL (8.6-10.3); Carbon Dioxide 34 mEq/L (23-29); Chloride 93 mEq/L (98-107); Glucose 102 mg/dL (70-105); Osmolality,Calculated 273 (280-300); Potassium 4.5 mEq/L (3.5-5.1); Sodium 130 mEq/L (136-145); eGFR For African Americans > 60 (> 60); eGFR For Non-African Americans > 60 (> 60)
[2020-03-09] MEDS: *HR* Heparin 5,000 UNIT/ML VIAL SQ SCH ×2 (05:37→17:37)
[2020-03-09] MEDS: Insulin LISPRO 300 UNITS/3 ML VIAL SUBQ SCH ×3 (07:54→17:37)
[2020-03-09] MEDS: amLODIPine 5 MG TABLET PO SCH (08:00)
[2020-03-09] MEDS: predniSONE 20 MG TABLET PO SCH (08:00)
[2020-03-09] MEDS: Metoprolol XL (24 HR) Succ 25 MG TAB.ER.24H PO SCH (08:00)
[2020-03-09 09:16] LABS: Anisocytosis 1+ (Not Present); Lymphocytes # 0.3 K/mcL (0.6-4.6); Monocytes # 0.6 K/mcL (0.0-1.3); Platelet Estimate Normal (Normal); Poikilocytosis 1+ (Not Present)
[2020-03-09 09:17] LABS: Platelet Clumps Few (Not Present); Schistocytes 1+ (Not Present)
[2020-03-09] MEDS: Budesonide/Formoterol 160/4.5 1 PUFF INH IH SCH ×2 (10:44→22:16)
[2020-03-10] MEDS: Piperacillin/Tazobactam 3.375 GM in 0.9 % Sodium Chloride Mini Bag 100 ML IVPB SCH ×2 (01:29→08:56)
[2020-03-10] MEDS: Ipratropium/Albuterol Neb 3 ML IH SCH ×3 (04:00→16:00)
[2020-03-10] MEDS: *HR* Heparin 5,000 UNIT/ML VIAL SQ SCH (05:57)
[2020-03-10 07:54] LABS: Hematocrit 36.6 % (37.5-50.1); Hemoglobin 11.7 g/dL (12.9-16.9); Mean Corpuscular Hemoglobin 28.2 pg (28.0-33.3); Mean Corpuscular Volume 88.2 fL (83.0-100.0); Mean Platelet Volume 10.3 fL (9.4-12.4); Platelet Count 276 K/mcL (140-400); Red Blood Count 4.15 M/mcL (4.19-5.50); Red Cell Distribution Width 15.3 % (11.5-14.5); White Blood Count 18.4 K/mcL (4.3-11.1)
[2020-03-10] MEDS: Insulin LISPRO 300 UNITS/3 ML VIAL SUBQ SCH ×3 (08:04→17:21)
[2020-03-10 08:16] LABS: BUN/Creatinine Ratio 46 (6-26); Blood Urea Nitrogen 23 mg/dL (8-23); Calcium 8.8 mg/dL (8.6-10.3); Carbon Dioxide 32 mEq/L (23-29); Chloride 90 mEq/L (98-107); Glucose 93 mg/dL (70-105); Osmolality,Calculated 273 (280-300); Potassium 4.2 mEq/L (3.5-5.1); Sodium 130 mEq/L (136-145); eGFR For African Americans > 60 (> 60); eGFR For Non-African Americans > 60 (> 60)
[2020-03-10 08:37] LABS: Anisocytosis 1+ (Not Present); Lymphocytes # 2.9 K/mcL (0.6-4.6); Monocytes # 0.7 K/mcL (0.0-1.3); Neutrophils # 14.7 K/mcL (1.6-8.9); Platelet Estimate Normal (Normal)
[2020-03-10 08:38] LABS: Poikilocytosis 1+ (Not Present)
[2020-03-10] MEDS: amLODIPine 5 MG TABLET PO SCH (08:56)
[2020-03-10] MEDS: predniSONE 20 MG TABLET PO SCH (08:56)
[2020-03-10] MEDS: Metoprolol XL (24 HR) Succ 25 MG TAB.ER.24H PO SCH (08:56)
[2020-03-10] MEDS: Budesonide/Formoterol 160/4.5 1 PUFF INH IH SCH (10:18)
[2020-03-10 17:22] VITALS: BP 115/71
[2020-03-10 17:22] LABS: Influenza A PCR Negative (Negative); Influenza B PCR Negative (Negative); Resp. Syncytial Virus PCR Negative (Negative)
[2020-03-10 17:27] LABS: SARS-CoV-2 by PCR (In House) Negative (Negative)
== END 2020-03-10 18:30 | DRG 871 ==
LOC: ICNU 18:03 → EMEROOARM 18:03 → SUATTDRO 20:13 → 2NNU 20:19 → SUATTDRO 02-28 11:06 → 2ANU 03-02 14:03
PROVIDERS: ADMIT Internal Medicine Nephrology; ATTEND Family Medicine

== ENCOUNTER 2020-04-21 17:12 | Inpatient (IN) ==
[~2020-04-21 17:12] MED LIST: *HR* Etomidate 20 MG/10 ML AMPUL IVP ONE; *HR* Midazolam HCl 5 MG/5 ML VIAL IVP ONE; *HR* Rocuronium Bromide 50 MG/5 ML VIAL IVP ONE
[2020-04-21] MEDS ORDERED: *HR* EPINEPHrine 100 MCG/10 ML SYRINGE IVP ONE (17:25)
[2020-04-21] MEDS ORDERED: *HR* Midazolam HCl 5 MG/5 ML VIAL IVP ONE (17:35)
[2020-04-21] MEDS ORDERED: Piperacillin/Tazobactam 3.375 GM in 0.9 % Sodium Chloride Mini Bag 100 ML IVPB ONE (17:36)
[2020-04-21] MEDS ORDERED: 0.9 % Sodium Chloride 1,000 ML IVC ONE ×2 (17:36→19:34)
[2020-04-21] MEDS ORDERED: *HR* FentaNYL (PF) 1,000 MCG/20 ML VIAL ONE (17:39)
[2020-04-21] MEDS ORDERED: *HR* Midazolam HCl 50 MG/10 ML VIAL IVC ONE (17:39)
[2020-04-21] MEDS ORDERED: methylPREDNISolone 125 MG/2 ML VIAL IVP ONE (17:44)
[2020-04-21] MEDS ORDERED: Ipratropium/Albuterol Neb 3 ML IH ONE (17:44)
[2020-04-21] MEDS ORDERED: Midazolam HCl 50 MG/100 ML IV.SOLN IVC SCH (17:45)
[2020-04-21 17:58] LABS: Basophils # 0.1 K/mcL (0.0-0.2); Basophils % 0.9 %; Eosinophils # 1.1 K/mcL (0.0-0.6); Eosinophils % 10.8 %; Hematocrit 38.2 % (37.5-50.1); Hemoglobin 12.1 g/dL (12.9-16.9); Immature Granulocytes % 0.5 % (0-4); Lymphocytes # 2.2 K/mcL (0.6-4.6); Lymphocytes % 20.7 %; Mean Corpuscular HGB Conc 31.7 g/dL (31.6-35.5); Mean Corpuscular Hemoglobin 27.5 pg (28.0-33.3); Mean Corpuscular Volume 86.8 fL (83.0-100.0); Mean Platelet Volume 10.9 fL (9.4-12.4); Monocytes # 0.8 K/mcL (0.0-1.3); Neutrophils # 6.2 K/mcL (1.6-8.9); Platelet Count 198 K/mcL (140-400); Red Cell Distribution Width 15.2 % (11.5-14.5); Segmented Neutrophils % 59.1 %; White Blood Count 10.5 K/mcL (4.3-11.1)
[2020-04-21] MEDS: FentaNYL (PF) 1,000 MCG/100 ML IV.SOLN IVC SCH (17:59)
[2020-04-21] MEDS ORDERED: Vancomycin 1,250 MG/262.5 ML IV.SOLN IVPB ONE (18:00)
[2020-04-21 18:03] LABS: Prothrombin Time 11.9 Seconds (9.4-12.1)
[2020-04-21 18:06] LABS: Activated Partial Thrombo Time 27.8 Seconds (26.0-36.0)
[2020-04-21 18:17] LABS: Alanine Aminotransferase 19 Units/L (7-52); Albumin 4.7 g/dL (3.5-5.7); Albumin/Globulin Ratio 1.7 (1.1-2.2); Alkaline Phosphatase 68 Units/L (34-104); Aspartate Amino Transferase 24 Units/L (13-39); BUN/Creatinine Ratio 25 (6-26); Bilirubin,Direct 0.1 mg/dL (0.0-0.2); Bilirubin,Indirect 0.4 mg/dL (0.0-1.0); Bilirubin,Total 0.5 mg/dL (0.3-1.0); Blood Urea Nitrogen 14 mg/dL (8-23); Calcium 9.1 mg/dL (8.6-10.3); Carbon Dioxide 31 mEq/L (23-29); Chloride 85 mEq/L (98-107); Ethanol < 10 mg/dL (Less than 10); Globulin 2.7 g/dL (2.4-3.5); Glucose 104 mg/dL (70-105); Osmolality,Calculated 259 (280-300); Potassium 4.1 mEq/L (3.5-5.1); Sodium 124 mEq/L (136-145); Total Protein 7.4 g/dL (6.4-8.9); Troponin I < 0.03 ng/mL (< 0.04); eGFR For African Americans > 60 (> 60); eGFR For Non-African Americans > 60 (> 60)
[2020-04-21 18:26] LABS: ABG Base Excess 1 mEq/L (-2 to 3); ABG HCO3 27 mEq/L (21-27); ABG Oxygen Saturation 100 % (95-98); ABG PCO2 47 mmHg (35-45); ABG PH 7.37 pH Units (7.32-7.45); ABG PO2 336 mmHg (85-104); ABG TCO2 29 mEq/L (20-26); Blood Gas VT 350 cc
[2020-04-21 18:29] LABS: Thyroid Stimulating Hormone 5.407 mcIU/mL (0.340-5.600)
[2020-04-21] MEDS ORDERED: 0.9 % Sodium Chloride 1,000 ML ONE (19:43)
[2020-04-21 20:09] LABS: Bilirubin,Urine Negative (Negative); Blood,Urine Negative (Negative); Clarity,Urine Clear (Clear); Color,Urine Colorless (Yellow); Glucose,Urine (UA) Normal (Normal); Ketones,Urine 20 mg/dL (Negative); Leukocyte Esterase,Urine Negative (Negative); Nitrite,Urine Negative (Negative); Protein,Urine Trace mg/dL (Neg-Trace); Specific Gravity,Urine 1.012 (1.010-1.025); Urobilinogen,Urine Normal (Normal)
[2020-04-21 20:21] LABS: Amphetamine Screen,Urine Negative ng/mL (Cutoff=1000); Barbiturate Screen,Urine Negative ng/mL (Cutoff=200); Benzodiazepines Screen,Urine Positive ng/mL (Cutoff=200); Cannabinoid Screen,Urine Negative ng/mL (Cutoff = 50); Cocaine Screen,Urine Negative ng/mL (Cutoff= 300); Opiate Screen,Urine Negative ng/mL (Cutoff=300); Phencyclidine Screen,Urine Negative ng/mL (Cutoff=25)
[2020-04-21] MEDS ORDERED: Acetaminophen 325 MG TABLET PO PRN (20:25)
[2020-04-21] MEDS ORDERED: Artificial Tears SOLN 15 ML BOTTLE BOTH EYES PRN (20:26)
[2020-04-21] MEDS ORDERED: *HR* Dextrose 50 % in Water (Vial) 50 ML VIAL IVP PRN (20:34)
[2020-04-21] MEDS ORDERED: Dextrose Gel 15 GM/37.5 ML TUBE PO PRN ×2 (20:34)
[2020-04-21] MEDS ORDERED: D5% in Water 1,000 ML IVC PRN (20:34)
[2020-04-21] MEDS ORDERED: Ipratropium/Albuterol Neb 3 ML IH SCH (20:45)
[2020-04-21] MEDS ORDERED: Azithromycin 500 MG in 0.9 % Sodium Chloride 250 ML IVPB SCH (21:00)
[2020-04-21 21:17] LABS: ABG Base Excess 0 mEq/L (-2 to 3); ABG HCO3 25 mEq/L (21-27); ABG Oxygen Saturation 95 % (95-98); ABG PCO2 42 mmHg (35-45); ABG PH 7.39 pH Units (7.32-7.45); ABG PO2 77 mmHg (85-104); ABG TCO2 27 mEq/L (20-26); Blood Gas Modality ASSIST CONTROL; Blood Gas VT 500 cc
[2020-04-21] MEDS: Chlorhexidine Rinse 15 ML MOUTHWASH MM SCH (21:20)
[2020-04-21 21:52] LABS: BUN/Creatinine Ratio 28 (6-26); Blood Urea Nitrogen 13 mg/dL (8-23); Calcium 8.3 mg/dL (8.6-10.3); Carbon Dioxide 25 mEq/L (23-29); Chloride 88 mEq/L (98-107); Glucose 132 mg/dL (70-105); Osmolality,Calculated 256 (280-300); Potassium 3.7 mEq/L (3.5-5.1); Sodium 122 mEq/L (136-145); eGFR For African Americans > 60 (> 60); eGFR For Non-African Americans > 60 (> 60)
[2020-04-21] MEDS ORDERED: Isovue-370 500 ML BOTTLE IVP ONE ×2 (22:16→22:24)
[2020-04-21] MEDS: Ipratropium/Albuterol Neb 3 ML IH SCH (22:21)
[2020-04-21] MEDS: Artificial Tears SOLN 15 ML BOTTLE BOTH EYES SCH (23:16)
[2020-04-21] MEDS: Cefepime HCl 2,000 MG in Water for inj. (sterile) 20 ML IVP SCH (23:16)
[2020-04-21] MEDS: Insulin LISPRO 300 UNITS/3 ML VIAL SUBQ SCH (23:22)
[2020-04-22] MEDS: Ipratropium/Albuterol Neb 3 ML IH SCH ×9 (00:20→23:11)
[2020-04-22] MEDS: MethylPREDNISolone 40 MG/ML VIAL IVP SCH ×4 (02:52→23:56)
[2020-04-22] MEDS: Artificial Tears SOLN 15 ML BOTTLE BOTH EYES SCH ×5 (03:12→20:01)
[2020-04-22] MEDS: FentaNYL (PF) 1,000 MCG/100 ML IV.SOLN IVC SCH ×2 (03:23→11:52)
[2020-04-22 04:21] LABS: ABG Base Excess -3 mEq/L (-2 to 3); ABG HCO3 24 mEq/L (21-27); ABG Oxygen Saturation 97 % (95-98); ABG PCO2 50 mmHg (35-45); ABG PH 7.29 pH Units (7.32-7.45); ABG PO2 97 mmHg (85-104); ABG TCO2 26 mEq/L (20-26); Blood Gas VT 400 cc
[2020-04-22] MEDS: Insulin LISPRO 300 UNITS/3 ML VIAL SUBQ SCH ×4 (05:52→23:53)
[2020-04-22 06:29] LABS: Hematocrit 32.8 % (37.5-50.1); Hemoglobin 10.6 g/dL (12.9-16.9); Mean Corpuscular HGB Conc 32.3 g/dL (31.6-35.5); Mean Corpuscular Hemoglobin 28.1 pg (28.0-33.3); Mean Platelet Volume 10.4 fL (9.4-12.4); Platelet Count 167 K/mcL (140-400); Red Blood Count 3.77 M/mcL (4.19-5.50); Red Cell Distribution Width 15.1 % (11.5-14.5); White Blood Count 10.8 K/mcL (4.3-11.1)
[2020-04-22 07:10] LABS: BUN/Creatinine Ratio 25 (6-26); Blood Urea Nitrogen 16 mg/dL (8-23); Carbon Dioxide 26 mEq/L (23-29); Chloride 89 mEq/L (98-107); Glucose 148 mg/dL (70-105); Magnesium 1.6 mg/dL (1.6-2.6); Osmolality,Calculated 264 (280-300); Potassium 3.7 mEq/L (3.5-5.1); Sodium 125 mEq/L (136-145); eGFR For African Americans > 60 (> 60); eGFR For Non-African Americans > 60 (> 60)
[2020-04-22] MEDS: Cefepime HCl 2,000 MG in Water for inj. (sterile) 20 ML IVP SCH ×3 (08:46→23:55)
[2020-04-22] MEDS: Chlorhexidine Rinse 15 ML MOUTHWASH MM SCH ×2 (08:46→20:01)
[2020-04-22 10:03] LABS: Adenovirus Not Detected (Not Detect); Bordetella Pertussis Not Detected (Not Detect); Chlamydophila pneumoniae Not Detected (Not Detect); Coronavirus 229E Not Detected (Not Detect); Coronavirus HKU1 Not Detected (Not Detect); Coronavirus NL63 Not Detected (Not Detect); Coronavirus OC43 Not Detected (Not Detect); Human Metapneumovirus Not Detected (Not Detect); Human Rhinovirus/Enterovirus Not Detected (Not Detect); Influenza A Subtype 2009 H1 Not Detected (Not Detect); Influenza B Not Detected (Not Detect); Mycoplasma pneumoniae Not Detected (Not Detect); Parainfluenza Virus 1 Not Detected (Not Detect); Parainfluenza Virus 2 Not Detected (Not Detect); Parainfluenza Virus 3 Not Detected (Not Detect); Parainfluenza Virus 4 Not Detected (Not Detect); Respiratory Syncytial Virus Not Detected (Not Detect); SARS-CoV-2 Not Detected (Not Detect)
[2020-04-22] MEDS ORDERED: *HR* Heparin 5,000 UNIT/ML VIAL IVP ONE (10:42)
[2020-04-22] MEDS ORDERED: *HR* Heparin 5,000 UNIT/ML VIAL IVP PRN ×2 (10:42)
[2020-04-22] MEDS ORDERED: Heparin 25,000UNIT/250ML 1/2NS 25,000 UNIT/250 ML IV.SOLN IVC SCH (10:45)
[2020-04-22] MEDS ORDERED: Ringers Solution, Lactated 500 ML IVC ONE (12:52)
[2020-04-22] MEDS ORDERED: Ringers Solution, Lactated 1,000 ML ONE (12:52)
[2020-04-22] MEDS: Norepinephrine 4 MG/254 ML IV.SOLN IVC SCH (13:20)
[2020-04-22 14:40] LABS: Hematocrit 33.2 % (37.5-50.1); Hemoglobin 10.8 g/dL (12.9-16.9); Mean Corpuscular HGB Conc 32.5 g/dL (31.6-35.5); Mean Corpuscular Hemoglobin 27.7 pg (28.0-33.3); Mean Corpuscular Volume 85.1 fL (83.0-100.0); Mean Platelet Volume 9.9 fL (9.4-12.4); Platelet Count 211 K/mcL (140-400); Red Cell Distribution Width 15.5 % (11.5-14.5); White Blood Count 15.3 K/mcL (4.3-11.1)
[2020-04-22 15:02] LABS: Troponin I < 0.03 ng/mL (< 0.04)
[2020-04-22 15:08] LABS: Heparin anti-factor XA UFH < 0.04 IU/mL (0.30-0.70); INR 1.1; Prothrombin Time 12.3 Seconds (9.4-12.1)
[2020-04-22] MEDS ORDERED: Ipratropium/Albuterol Neb 3 ML IH PRN (16:00)
[2020-04-22 16:56] LABS: Uric Acid 3.6 mg/dL (2.3-7.6)
[2020-04-22] MEDS ORDERED: *HR* Metformin 500 MG TABLET PO SCH (18:00)
[2020-04-22] MEDS: Budesonide/Formoterol 160/4.5 1 PUFF INH IH SCH (19:32)
[2020-04-23] MEDS: Ipratropium/Albuterol Neb 3 ML IH SCH ×5 (04:00→20:39)
[2020-04-23 05:12] LABS: Basophils % 0.1 %; Eosinophils % 0.1 %; Hematocrit 31.7 % (37.5-50.1); Hemoglobin 10.3 g/dL (12.9-16.9); Immature Granulocytes % 0.6 % (0-4); Lymphocytes # 0.6 K/mcL (0.6-4.6); Lymphocytes % 3.9 %; Mean Corpuscular HGB Conc 32.5 g/dL (31.6-35.5); Mean Corpuscular Hemoglobin 27.5 pg (28.0-33.3); Mean Corpuscular Volume 84.5 fL (83.0-100.0); Mean Platelet Volume 11.3 fL (9.4-12.4); Monocytes # 0.5 K/mcL (0.0-1.3); Platelet Count 146 K/mcL (140-400); Red Blood Count 3.75 M/mcL (4.19-5.50); Red Cell Distribution Width 15.9 % (11.5-14.5); Segmented Neutrophils % 92.3 %; White Blood Count 16.3 K/mcL (4.3-11.1)
[2020-04-23 05:28] LABS: BUN/Creatinine Ratio 36 (6-26); Blood Urea Nitrogen 20 mg/dL (8-23); Calcium 8.5 mg/dL (8.6-10.3); Carbon Dioxide 27 mEq/L (23-29); Chloride 96 mEq/L (98-107); Glucose 136 mg/dL (70-105); Magnesium 1.9 mg/dL (1.6-2.6); Osmolality,Calculated 277 (280-300); Phosphorous 3.5 mg/dL (2.7-4.5); Potassium 4.1 mEq/L (3.5-5.1); Sodium 131 mEq/L (136-145); eGFR For African Americans > 60 (> 60); eGFR For Non-African Americans > 60 (> 60)
[2020-04-23 05:43] LABS: Thyroid Stimulating Hormone 1.667 mcIU/mL (0.340-5.600)
[2020-04-23] MEDS: Insulin LISPRO 300 UNITS/3 ML VIAL SUBQ SCH ×3 (06:09→18:19)
[2020-04-23] MEDS: Budesonide/Formoterol 160/4.5 1 PUFF INH IH SCH ×2 (07:49→20:38)
[2020-04-23] MEDS ORDERED: MethylPREDNISolone 40 MG/ML VIAL IVP SCH (08:30)
[2020-04-23] MEDS: Cefepime HCl 2,000 MG in Water for inj. (sterile) 20 ML IVP SCH ×2 (08:36→23:31)
[2020-04-23] MEDS ORDERED: Furosemide 20 MG/2 ML VIAL IVP SCH (09:00)
[2020-04-23] MEDS: Metoprolol XL (24 HR) Succ 25 MG TAB.ER.24H PO SCH ×2 (09:35→12:04)
[2020-04-23] MEDS: amLODIPine 5 MG TABLET PO SCH ×2 (09:35→12:04)
[2020-04-23] MEDS ORDERED: Perflutren Lipid Microsphere 1.3 ML in 0.9 % Sodium Chloride 8.7 ML IVP PRN ×2 (10:31→16:36)
[2020-04-23] MEDS: Norepinephrine 4 MG/254 ML IV.SOLN IVC SCH (11:35)
[2020-04-23] MEDS ORDERED: E-Z-HD (BARIUM SULF) SUSPENSION PO ONE (15:41)
[2020-04-23] MEDS ORDERED: E-Z-PAQUE (BARIUM SULF) SUSP 1 BOTTLE PO ONE (15:41)
[2020-04-23 15:43] LABS: Appearance of Body Fluid Hazy (Clear); Volume of Body Fluid 18 mL
[2020-04-23] MEDS ORDERED: Artificial Tears SOLN 15 ML BOTTLE BOTH EYES PRN (16:36)
[2020-04-23] MEDS ORDERED: D5% in Water 1,000 ML IVC PRN (16:36)
[2020-04-23] MEDS ORDERED: Acetaminophen 325 MG TABLET PO PRN (16:36)
[2020-04-23] MEDS ORDERED: Dextrose Gel 15 GM/37.5 ML TUBE PO PRN ×2 (16:36)
[2020-04-23] MEDS ORDERED: *HR* Heparin 5,000 UNIT/ML VIAL IVP PRN ×2 (16:36)
[2020-04-23] MEDS ORDERED: *HR* Dextrose 50 % in Water (Vial) 50 ML VIAL IVP PRN (16:36)
[2020-04-23] MEDS ORDERED: Ipratropium/Albuterol Neb 3 ML IH PRN (16:36)
[2020-04-23] MEDS: MethylPREDNISolone 40 MG/ML VIAL IVP SCH (18:18)
[2020-04-23] MEDS: Heparin 25,000UNIT/250ML 1/2NS 25,000 UNIT/250 ML IV.SOLN IVC SCH (20:52)
[2020-04-23] MEDS: Furosemide 20 MG/2 ML VIAL IVP SCH (21:03)
[2020-04-24] MEDS: Ipratropium/Albuterol Neb 3 ML IH SCH ×7 (00:01→23:54)
[2020-04-24] MEDS: Insulin LISPRO 300 UNITS/3 ML VIAL SUBQ SCH ×4 (00:02→18:22)
[2020-04-24] MEDS: MethylPREDNISolone 40 MG/ML VIAL IVP SCH ×2 (05:51→16:49)
[2020-04-24] MEDS: Budesonide/Formoterol 160/4.5 1 PUFF INH IH SCH ×2 (08:46→20:04)
[2020-04-24] MEDS ORDERED: Metoprolol XL (24 HR) Succ 25 MG TAB.ER.24H PO SCH (09:00)
[2020-04-24] MEDS: Cefepime HCl 2,000 MG in Water for inj. (sterile) 20 ML IVP SCH ×3 (09:04→23:23)
[2020-04-24] MEDS: Furosemide 20 MG/2 ML VIAL IVP SCH ×2 (09:09→20:23)
[2020-04-24] MEDS: amLODIPine 5 MG TABLET PO SCH (09:10)
[2020-04-24] MEDS ORDERED: *HR* Metoprolol 5 MG/5 ML VIAL IVP ONE (10:19)
[2020-04-24 13:20] LABS: Basophils % 0.1 %; Eosinophils % 0.2 %; Hematocrit 33.5 % (37.5-50.1); Hemoglobin 10.8 g/dL (12.9-16.9); Immature Granulocytes % 0.8 % (0-4); Lymphocytes # 0.4 K/mcL (0.6-4.6); Lymphocytes % 3.3 %; Mean Corpuscular HGB Conc 32.2 g/dL (31.6-35.5); Mean Corpuscular Hemoglobin 27.8 pg (28.0-33.3); Mean Corpuscular Volume 86.3 fL (83.0-100.0); Mean Platelet Volume 11.2 fL (9.4-12.4); Monocytes # 0.7 K/mcL (0.0-1.3); Monocytes % 4.9 %; Platelet Count 201 K/mcL (140-400); Red Blood Count 3.88 M/mcL (4.19-5.50); Segmented Neutrophils % 90.7 %; White Blood Count 13.2 K/mcL (4.3-11.1)
[2020-04-24 13:39] LABS: BUN/Creatinine Ratio 43 (6-26); Blood Urea Nitrogen 23 mg/dL (8-23); Calcium 8.7 mg/dL (8.6-10.3); Carbon Dioxide 33 mEq/L (23-29); Chloride 93 mEq/L (98-107); Glucose 136 mg/dL (70-105); Osmolality,Calculated 284 (280-300); Potassium 3.4 mEq/L (3.5-5.1); Sodium 134 mEq/L (136-145); eGFR For African Americans > 60 (> 60); eGFR For Non-African Americans > 60 (> 60)
[2020-04-24] MEDS ORDERED: Potassium Effervescent 25 MEQ TABLET.EFF PO ONE (14:48)
[2020-04-25] MEDS: Insulin LISPRO 300 UNITS/3 ML VIAL SUBQ SCH ×4 (00:07→17:51)
[2020-04-25] MEDS: Heparin 25,000UNIT/250ML 1/2NS 25,000 UNIT/250 ML IV.SOLN IVC SCH ×2 (02:04→17:57)
[2020-04-25] MEDS: Ipratropium/Albuterol Neb 3 ML IH SCH ×6 (03:50→23:34)
[2020-04-25] MEDS: MethylPREDNISolone 40 MG/ML VIAL IVP SCH ×2 (05:20→17:12)
[2020-04-25 05:29] LABS: Basophils % 0.1 %; Eosinophils # 3.2 K/mcL (0.0-0.6); Eosinophils % 29.8 %; Hematocrit 34.8 % (37.5-50.1); Hemoglobin 11.2 g/dL (12.9-16.9); Immature Granulocytes % 1.5 % (0-4); Lymphocytes # 0.6 K/mcL (0.6-4.6); Lymphocytes % 5.5 %; Mean Corpuscular HGB Conc 32.2 g/dL (31.6-35.5); Mean Platelet Volume 9.5 fL (9.4-12.4); Monocytes % 9.3 %; Neutrophils # 5.8 K/mcL (1.6-8.9); Platelet Count 231 K/mcL (140-400); Red Cell Distribution Width 15.9 % (11.5-14.5); Segmented Neutrophils % 53.8 %; White Blood Count 10.7 K/mcL (4.3-11.1)
[2020-04-25 05:50] LABS: Platelet Estimate Normal (Normal)
[2020-04-25 05:53] LABS: BUN/Creatinine Ratio 44 (6-26); Blood Urea Nitrogen 22 mg/dL (8-23); Calcium 8.9 mg/dL (8.6-10.3); Carbon Dioxide 40 mEq/L (23-29); Chloride 91 mEq/L (98-107); Glucose 133 mg/dL (70-105); Osmolality,Calculated 285 (280-300); Potassium 3.7 mEq/L (3.5-5.1); Sodium 135 mEq/L (136-145); eGFR For African Americans > 60 (> 60); eGFR For Non-African Americans > 60 (> 60)
[2020-04-25] MEDS: Budesonide/Formoterol 160/4.5 1 PUFF INH IH SCH ×2 (08:22→20:25)
[2020-04-25 08:26] LABS: ABG Base Excess 11 mEq/L (-2 to 3); ABG HCO3 38 mEq/L (21-27); ABG Oxygen Saturation 99 % (95-98); ABG PCO2 56 mmHg (35-45); ABG PH 7.43 pH Units (7.32-7.45); ABG PO2 158 mmHg (85-104); ABG TCO2 40 mEq/L (20-26)
[2020-04-25] MEDS: Metoprolol XL (24 HR) Succ 50 MG TAB.ER.24H PO SCH (09:35)
[2020-04-25] MEDS: Cefepime HCl 2,000 MG in Water for inj. (sterile) 20 ML IVP SCH ×3 (09:35→23:25)
[2020-04-25] MEDS: amLODIPine 5 MG TABLET PO SCH (09:35)
[2020-04-25] MEDS: Furosemide 20 MG/2 ML VIAL IVP SCH ×2 (09:36→21:15)
[2020-04-25] MEDS ORDERED: Insulin LISPRO 300 UNITS/3 ML VIAL SUBQ SCH (21:00)
[2020-04-25] MEDS: Apixaban 5 MG TABLET PO SCH (21:16)
[2020-04-26 03:01] LABS: Basophils % 0.1 %; Eosinophils % 0.3 %; Hematocrit 35.4 % (37.5-50.1); Hemoglobin 11.3 g/dL (12.9-16.9); Immature Granulocytes % 0.7 % (0-4); Lymphocytes # 0.5 K/mcL (0.6-4.6); Lymphocytes % 4.7 %; Mean Corpuscular HGB Conc 31.9 g/dL (31.6-35.5); Mean Corpuscular Volume 87.8 fL (83.0-100.0); Mean Platelet Volume 11.4 fL (9.4-12.4); Monocytes # 0.6 K/mcL (0.0-1.3); Monocytes % 5.9 %; Neutrophils # 9.1 K/mcL (1.6-8.9); Platelet Count 214 K/mcL (140-400); Red Blood Count 4.03 M/mcL (4.19-5.50); Red Cell Distribution Width 15.5 % (11.5-14.5); Segmented Neutrophils % 88.3 %; White Blood Count 10.3 K/mcL (4.3-11.1)
[2020-04-26 03:24] LABS: BUN/Creatinine Ratio 51 (6-26); Blood Urea Nitrogen 29 mg/dL (8-23); Calcium 8.6 mg/dL (8.6-10.3); Carbon Dioxide 40 mEq/L (23-29); Chloride 86 mEq/L (98-107); Glucose 161 mg/dL (70-105); Osmolality,Calculated 281 (280-300); Potassium 3.6 mEq/L (3.5-5.1); Sodium 131 mEq/L (136-145); eGFR For African Americans > 60 (> 60); eGFR For Non-African Americans > 60 (> 60)
[2020-04-26] MEDS: Ipratropium/Albuterol Neb 3 ML IH SCH ×3 (03:44→12:02)
[2020-04-26] MEDS: MethylPREDNISolone 40 MG/ML VIAL IVP SCH (05:42)
[2020-04-26] MEDS: Budesonide/Formoterol 160/4.5 1 PUFF INH IH SCH (08:40)
[2020-04-26] MEDS: Insulin LISPRO 300 UNITS/3 ML VIAL SUBQ SCH ×2 (09:03→12:17)
[2020-04-26] MEDS: Apixaban 5 MG TABLET PO SCH (09:12)
[2020-04-26] MEDS: amLODIPine 5 MG TABLET PO SCH (09:13)
[2020-04-26] MEDS: Metoprolol XL (24 HR) Succ 50 MG TAB.ER.24H PO SCH (09:13)
[2020-04-26] MEDS: Furosemide 20 MG/2 ML VIAL IVP SCH (09:13)
[2020-04-26] MEDS: Cefepime HCl 2,000 MG in Water for inj. (sterile) 20 ML IVP SCH (09:13)
[2020-04-26] MEDS ORDERED: acetaZOLAMIDE 250 MG in Water for inj. (sterile) 2.5 ML IVP ONE (09:34)
[2020-04-26 11:19] VITALS: BP 133/68
== END 2020-04-26 14:38 | disposition home health service (06) | DRG 871 ==
LOC: ICNU 17:12 → EMEROOARM 17:12 → ICNU 20:25 → 2ANU 04-23 15:59
PROVIDERS: ADMIT Family Medicine; ATTEND Family Medicine

== ENCOUNTER 2020-12-09 14:02 | Inpatient (IN) ==
[2020-12-09] MEDS ORDERED: predniSONE 20 MG TABLET PO ONE (14:53)
[2020-12-09 15:36] LABS: Basophils # 0.1 K/mcL (0.0-0.2); Basophils % 1.1 %; Eosinophils # 1.1 K/mcL (0.0-0.6); Hematocrit 36.7 % (37.5-50.1); Hemoglobin 12.3 g/dL (12.9-16.9); Immature Granulocytes % 0.4 % (0-4); Lymphocytes # 1.7 K/mcL (0.6-4.6); Mean Corpuscular HGB Conc 33.5 g/dL (31.6-35.5); Mean Corpuscular Hemoglobin 29.1 pg (28.0-33.3); Mean Corpuscular Volume 86.8 fL (83.0-100.0); Mean Platelet Volume 11.8 fL (9.4-12.4); Monocytes # 0.9 K/mcL (0.0-1.3); Monocytes % 8.5 %; Neutrophils # 7.2 K/mcL (1.6-8.9); Platelet Count 183 K/mcL (140-400); Red Blood Count 4.23 M/mcL (4.19-5.50); Red Cell Distribution Width 14.1 % (11.5-14.5)
[2020-12-09 15:54] LABS: BUN/Creatinine Ratio 35 (6-26); Blood Urea Nitrogen 24 mg/dL (8-23); Calcium 9.4 mg/dL (8.6-10.3); Carbon Dioxide 33 mEq/L (23-29); Chloride 87 mEq/L (98-107); Glucose 105 mg/dL (70-105); Osmolality,Calculated 270 (280-300); Potassium 3.5 mEq/L (3.5-5.1); Sodium 128 mEq/L (136-145); Troponin I < 0.03 ng/mL (< 0.04); eGFR For African Americans > 60 (> 60); eGFR For Non-African Americans > 60 (> 60)
[2020-12-09] MEDS ORDERED: Ipratropium/Albuterol Neb 3 ML IH ONE (15:55)
[2020-12-09] MEDS ORDERED: 0.9 % Sodium Chloride 250 ML IVC ONE (15:55)
[2020-12-09] MEDS ORDERED: Isovue-370 500 ML BOTTLE IVP ONE (16:33)
[2020-12-09] MEDS ORDERED: Naloxone 0.4 MG/ML INJ IVP PRN (17:10)
[2020-12-09] MEDS ORDERED: Ondansetron 4 MG/2 ML VIAL IVP PRN (17:10)
[2020-12-09] MEDS ORDERED: *HR* Atropine Sulfate 1 MG/10 ML SYRINGE IVP STA (18:07)
[2020-12-09] MEDS ORDERED: D5% in Water 1,000 ML IVC PRN (19:42)
[2020-12-09] MEDS ORDERED: *HR* Dextrose 50 % in Water (Syg) 50 ML SYRINGE IVP PRN (19:42)
[2020-12-09] MEDS ORDERED: Dextrose Gel 15 GM/37.5 ML TUBE PO PRN ×2 (19:42)
[2020-12-09 20:44] LABS: Adenovirus Not Detected (Not Detect); Bordetella Pertussis Not Detected (Not Detect); Chlamydophila pneumoniae Not Detected (Not Detect); Coronavirus 229E Not Detected (Not Detect); Coronavirus HKU1 Not Detected (Not Detect); Coronavirus NL63 Not Detected (Not Detect); Coronavirus OC43 Not Detected (Not Detect); Human Metapneumovirus Not Detected (Not Detect); Human Rhinovirus/Enterovirus Not Detected (Not Detect); Influenza A Subtype 2009 H1 Not Detected (Not Detect); Influenza B Not Detected (Not Detect); Mycoplasma pneumoniae Not Detected (Not Detect); Parainfluenza Virus 1 Not Detected (Not Detect); Parainfluenza Virus 2 Not Detected (Not Detect); Parainfluenza Virus 3 Not Detected (Not Detect); Parainfluenza Virus 4 Not Detected (Not Detect); Respiratory Syncytial Virus Not Detected (Not Detect); SARS-CoV-2 Not Detected (Not Detect)
[2020-12-09] MEDS: Ipratropium/Albuterol Neb 3 ML IH SCH (21:35)
[2020-12-10] MEDS: Budesonide/Formoterol 160/4.5 1 PUFF INH IH SCH ×3 (00:06→20:51)
[2020-12-10] MEDS: Ipratropium/Albuterol Neb 3 ML IH SCH ×6 (00:08→20:51)
[2020-12-10] MEDS: MethylPREDNISolone 40 MG/ML VIAL IVP SCH ×4 (00:12→23:28)
[2020-12-10] MEDS: Insulin LISPRO 300 UNITS/3 ML VIAL SUBQ SCH ×4 (00:12→17:41)
[2020-12-10 03:41] LABS: Blood Urea Nitrogen 23 mg/dL (8-23); Calcium 8.7 mg/dL (8.6-10.3); Carbon Dioxide 27 mEq/L (23-29); Chloride 85 mEq/L (98-107); Glucose 130 mg/dL (70-105); Osmolality,Calculated 267 (280-300); Potassium 3.6 mEq/L (3.5-5.1); Sodium 126 mEq/L (136-145)
[2020-12-10 04:14] LABS: BUN/Creatinine Ratio 33 (6-26); eGFR For African Americans > 60 (> 60); eGFR For Non-African Americans > 60 (> 60)
[2020-12-10 04:25] LABS: Basophils % 0.2 %; Eosinophils % 0.1 %; Hematocrit 34.4 % (37.5-50.1); Hemoglobin 11.2 g/dL (12.9-16.9); Immature Granulocytes % 0.4 % (0-4); Lymphocytes # 0.5 K/mcL (0.6-4.6); Lymphocytes % 5.5 %; Mean Corpuscular HGB Conc 32.6 g/dL (31.6-35.5); Mean Corpuscular Hemoglobin 28.6 pg (28.0-33.3); Mean Platelet Volume 12.5 fL (9.4-12.4); Monocytes # 0.1 K/mcL (0.0-1.3); Monocytes % 1.2 %; Neutrophils # 8.4 K/mcL (1.6-8.9); Platelet Count 143 K/mcL (140-400); Red Blood Count 3.91 M/mcL (4.19-5.50); Red Cell Distribution Width 14.2 % (11.5-14.5); Segmented Neutrophils % 92.6 %; White Blood Count 9.1 K/mcL (4.3-11.1)
[2020-12-10] MEDS ORDERED: Apixaban 5 MG TABLET PO SCH (09:00)
[2020-12-10 13:05] LABS: C-Reactive Protein < 5 mg/L (Less than 10)
[2020-12-11] MEDS: Ipratropium/Albuterol Neb 3 ML IH SCH ×6 (00:30→20:20)
[2020-12-11] MEDS: Insulin LISPRO 300 UNITS/3 ML VIAL SUBQ SCH ×4 (00:45→18:08)
[2020-12-11] MEDS: Budesonide/Formoterol 160/4.5 1 PUFF INH IH SCH ×2 (08:37→20:20)
[2020-12-11] MEDS: MethylPREDNISolone 40 MG/ML VIAL IVP SCH ×3 (09:44→23:53)
[2020-12-11 10:07] LABS: Basophils % 0.1 %; Eosinophils % 0.1 %; Hemoglobin 11.8 g/dL (12.9-16.9); Immature Granulocytes % 0.9 % (0-4); Lymphocytes # 0.7 K/mcL (0.6-4.6); Lymphocytes % 4.8 %; Mean Corpuscular HGB Conc 32.8 g/dL (31.6-35.5); Mean Corpuscular Hemoglobin 28.3 pg (28.0-33.3); Mean Corpuscular Volume 86.3 fL (83.0-100.0); Mean Platelet Volume 11.7 fL (9.4-12.4); Monocytes % 6.4 %; Neutrophils # 13.1 K/mcL (1.6-8.9); Platelet Count 201 K/mcL (140-400); Red Blood Count 4.17 M/mcL (4.19-5.50); Red Cell Distribution Width 14.4 % (11.5-14.5); Segmented Neutrophils % 87.7 %; White Blood Count 14.9 K/mcL (4.3-11.1)
[2020-12-11 10:24] LABS: BUN/Creatinine Ratio 40 (6-26); Blood Urea Nitrogen 32 mg/dL (8-23); Calcium 9.5 mg/dL (8.6-10.3); Carbon Dioxide 35 mEq/L (23-29); Chloride 87 mEq/L (98-107); Glucose 130 mg/dL (70-105); Osmolality,Calculated 277 (280-300); Potassium 3.8 mEq/L (3.5-5.1); Sodium 129 mEq/L (136-145); eGFR For African Americans > 60 (> 60); eGFR For Non-African Americans > 60 (> 60)
[2020-12-12] MEDS: Ipratropium/Albuterol Neb 3 ML IH SCH ×6 (00:28→20:43)
[2020-12-12] MEDS: Insulin LISPRO 300 UNITS/3 ML VIAL SUBQ SCH ×4 (00:53→16:41)
[2020-12-12] MEDS: Budesonide/Formoterol 160/4.5 1 PUFF INH IH SCH ×2 (07:46→20:43)
[2020-12-12 08:07] LABS: Basophils % 0.1 %; Hematocrit 32.9 % (37.5-50.1); Hemoglobin 10.9 g/dL (12.9-16.9); Immature Granulocytes % 0.9 % (0-4); Lymphocytes # 0.4 K/mcL (0.6-4.6); Lymphocytes % 2.8 %; Mean Corpuscular HGB Conc 33.1 g/dL (31.6-35.5); Mean Corpuscular Hemoglobin 29.5 pg (28.0-33.3); Mean Corpuscular Volume 88.9 fL (83.0-100.0); Mean Platelet Volume 12.2 fL (9.4-12.4); Monocytes # 0.5 K/mcL (0.0-1.3); Monocytes % 3.9 %; Neutrophils # 12.2 K/mcL (1.6-8.9); Platelet Count 174 K/mcL (140-400); Red Cell Distribution Width 14.6 % (11.5-14.5); Segmented Neutrophils % 92.3 %; White Blood Count 13.2 K/mcL (4.3-11.1)
[2020-12-12] MEDS ORDERED: Oxymetazoline Nasal SPRAY BOTTLE NS STA (08:48)
[2020-12-12 08:52] LABS: BUN/Creatinine Ratio 46 (6-26); Blood Urea Nitrogen 30 mg/dL (8-23); Calcium 8.9 mg/dL (8.6-10.3); Carbon Dioxide 34 mEq/L (23-29); Chloride 91 mEq/L (98-107); Glucose 155 mg/dL (70-105); Osmolality,Calculated 281 (280-300); Potassium 4.3 mEq/L (3.5-5.1); Sodium 131 mEq/L (136-145); eGFR For African Americans > 60 (> 60); eGFR For Non-African Americans > 60 (> 60)
[2020-12-12] MEDS: MethylPREDNISolone 40 MG/ML VIAL IVP SCH ×2 (09:56→21:26)
[2020-12-12] MEDS: Azithromycin 250 MG TABLET PO SCH (09:57)
[2020-12-13] MEDS: Ipratropium/Albuterol Neb 3 ML IH SCH ×7 (00:15→23:01)
[2020-12-13] MEDS: Insulin LISPRO 300 UNITS/3 ML VIAL SUBQ SCH ×4 (01:01→19:10)
[2020-12-13] MEDS: MethylPREDNISolone 40 MG/ML VIAL IVP SCH ×3 (01:24→19:42)
[2020-12-13] MEDS: Budesonide/Formoterol 160/4.5 1 PUFF INH IH SCH ×2 (08:05→20:25)
[2020-12-13] MEDS: Azithromycin 250 MG TABLET PO SCH (08:26)
[2020-12-13 12:06] LABS: BUN/Creatinine Ratio 44 (6-26); Blood Urea Nitrogen 27 mg/dL (8-23); Calcium 9.1 mg/dL (8.6-10.3); Carbon Dioxide 32 mEq/L (23-29); Chloride 91 mEq/L (98-107); Glucose 129 mg/dL (70-105); Osmolality,Calculated 281 (280-300); Potassium 4.7 mEq/L (3.5-5.1); Sodium 132 mEq/L (136-145); eGFR For African Americans > 60 (> 60); eGFR For Non-African Americans > 60 (> 60)
[2020-12-13 13:30] LABS: Eosinophils % 0.1 %; Hematocrit 38.8 % (37.5-50.1); Hemoglobin 12.4 g/dL (12.9-16.9); Immature Granulocytes % 0.7 % (0-4); Lymphocytes # 0.4 K/mcL (0.6-4.6); Lymphocytes % 3.2 %; Mean Corpuscular Hemoglobin 28.5 pg (28.0-33.3); Mean Corpuscular Volume 89.2 fL (83.0-100.0); Monocytes # 0.3 K/mcL (0.0-1.3); Monocytes % 2.7 %; Neutrophils # 11.3 K/mcL (1.6-8.9); Platelet Count 238 K/mcL (140-400); Red Blood Count 4.35 M/mcL (4.19-5.50); Red Cell Distribution Width 14.7 % (11.5-14.5); Segmented Neutrophils % 93.3 %; White Blood Count 12.1 K/mcL (4.3-11.1)
[2020-12-13] MEDS ORDERED: 0.9 % Sodium Chloride 500 ML ONE (16:43)
[2020-12-13] MEDS ORDERED: Clindamycin 600 MG/50 ML 1,200 MG/100 ML IV.SOLN IVPB ONE (16:43)
[2020-12-13] MEDS ORDERED: 0.9 % Sodium Chloride 1,000 ML ONE (16:55)
[2020-12-13] MEDS ORDERED: *HR* FentaNYL (PF) 100 MCG/2 ML VIAL ONE (16:56)
[2020-12-13] MEDS ORDERED: *HR* Midazolam HCl 2 MG/2 ML VIAL ONE (16:57)
[2020-12-13] MEDS ORDERED: Acetaminophen 325 MG TABLET PO PRN (20:53)
[2020-12-14] MEDS: Insulin LISPRO 300 UNITS/3 ML VIAL SUBQ SCH ×5 (00:18→18:36)
[2020-12-14] MEDS: MethylPREDNISolone 40 MG/ML VIAL IVP SCH ×3 (00:21→18:36)
[2020-12-14] MEDS: Ipratropium/Albuterol Neb 3 ML IH SCH ×3 (04:10→16:32)
[2020-12-14 05:23] LABS: Basophils % 0.1 %; Hematocrit 34.2 % (37.5-50.1); Hemoglobin 11.2 g/dL (12.9-16.9); Immature Granulocytes % 0.8 % (0-4); Lymphocytes # 0.4 K/mcL (0.6-4.6); Lymphocytes % 2.7 %; Mean Corpuscular HGB Conc 32.7 g/dL (31.6-35.5); Mean Corpuscular Hemoglobin 29.2 pg (28.0-33.3); Mean Corpuscular Volume 89.1 fL (83.0-100.0); Mean Platelet Volume 11.1 fL (9.4-12.4); Monocytes # 0.6 K/mcL (0.0-1.3); Monocytes % 4.2 %; Neutrophils # 13.1 K/mcL (1.6-8.9); Platelet Count 233 K/mcL (140-400); Red Blood Count 3.84 M/mcL (4.19-5.50); Red Cell Distribution Width 14.7 % (11.5-14.5); Segmented Neutrophils % 92.2 %; White Blood Count 14.2 K/mcL (4.3-11.1)
[2020-12-14 05:43] LABS: BUN/Creatinine Ratio 44 (6-26); Blood Urea Nitrogen 28 mg/dL (8-23); Calcium 8.9 mg/dL (8.6-10.3); Carbon Dioxide 35 mEq/L (23-29); Chloride 92 mEq/L (98-107); Glucose 158 mg/dL (70-105); Osmolality,Calculated 281 (280-300); Potassium 4.9 mEq/L (3.5-5.1); Sodium 131 mEq/L (136-145); eGFR For African Americans > 60 (> 60); eGFR For Non-African Americans > 60 (> 60)
[2020-12-14] MEDS ORDERED: Metoprolol XL (24 HR) Succ 25 MG TAB.ER.24H PO SCH (09:00)
[2020-12-14] MEDS: Budesonide/Formoterol 160/4.5 1 PUFF INH IH SCH (09:12)
[2020-12-14] MEDS: Azithromycin 250 MG TABLET PO SCH (09:29)
[2020-12-14] MEDS ORDERED: Acetylcysteine 10% 2 ML INHSOL IH ONE (10:26)
[2020-12-14 11:37] VITALS: BP 134/87; PULSE 108; TEMP 98.1; O2SAT 96
[2020-12-14 18:03] LABS: Adenovirus Not Detected (Not Detect); Bordetella Pertussis Not Detected (Not Detect); Chlamydophila pneumoniae Not Detected (Not Detect); Coronavirus 229E Not Detected (Not Detect); Coronavirus HKU1 Not Detected (Not Detect); Coronavirus NL63 Not Detected (Not Detect); Coronavirus OC43 Not Detected (Not Detect); Human Metapneumovirus Not Detected (Not Detect); Human Rhinovirus/Enterovirus Not Detected (Not Detect); Influenza A Subtype 2009 H1 Not Detected (Not Detect); Influenza B Not Detected (Not Detect); Mycoplasma pneumoniae Not Detected (Not Detect); Parainfluenza Virus 1 Not Detected (Not Detect); Parainfluenza Virus 2 Not Detected (Not Detect); Parainfluenza Virus 3 Not Detected (Not Detect); Parainfluenza Virus 4 Not Detected (Not Detect); Respiratory Syncytial Virus Not Detected (Not Detect); SARS-CoV-2 Not Detected (Not Detect)
== END 2020-12-14 18:40 | disposition other institution (70) | DRG 242 ==
LOC: EMEROOARM 14:02 → 3BNU 14:02 → 3NENU 14:02 → SUATTDRO 21:53 → 3NENU 22:37
PROVIDERS: ADMIT Internal Medicine; ATTEND Student in an Organized Health Care Education/Training Program